=== PATIENT | female | born 1985 | race Caucasian/White ===

== ENCOUNTER 2021-04-17 15:59 | Emergency (ER) | payer MEDICAID, SELFPAY ==
[2021-04-17 16:00] VITALS: BP 142/99; PULSE 88; RESP 16; TEMP 36.4; O2SAT 100; BMI 28.1
--- NOTE | 2021-04-17 16:14 | EX.ED.DYSGE1 ---
HPI History of Present Illness Chief Complaint: Abscess Informant: patient Narrative Narrative: 35-year-old female states that yesterday she developed a small pustule on the right side of her nose. She attempted to squeeze it today seems larger there is a red spot in the center of it. She notes a pe[place] of a shiny substance around it. There is no significant overlying erythema. She has never had an abscess before. PFSH PFSH Medical History no medical history no medical history Home Medications cephalexin 500 mg PO Q6 #28 capsule 04/17/21 [Rx Last Taken Unknown] sulfamethoxazole-trimethoprim 1 tab PO BID #14 tablet 04/17/21 [Rx Last Taken Unknown] Allergy/AdvReac Type Severity Reaction Status Date / Time No Known Allergies Allergy Verified 04/17/21 16:01 Surgical History no surgical history no surgical history Social History (Updated 04/17/21 @ 16:[address] Steven Wood, DO) current gender identity: female substance use type: does not use ROS ROS ED Constitutional Constitutional ED: Denies chills, fever(s) or weight loss Eyes Eyes: Denies change in vision or diplopia ENT ENT ED: Denies ear pain, rhinorrhea or sore throat Cardiovascular Cardiovascular: Denies chest pain, orthopnea, palpitations or racing heartbeat Respiratory/Chest Respiratory/Chest: Denies cough, dyspnea or orthopnea Gastrointestinal Gastrointestinal: Denies abdominal pain, diarrhea, nausea or vomiting Genitourinary Genitourinary ED: Denies dysuria, hematuria or urinary frequency Musculoskeletal Musculoskeletal: Denies arthralgias or myalgias Integumentary Reports abscess; Denies rash Neurologic Neurologic: Denies headache(s) or weakness Psychiatric Psychiatric: Denies anxiety, depression, suicidal ideation or suicidal thoughts Endocrine Endocrinology: Denies polydipsia, polyphagia or polyuria Allergic/Immunologic Allergic/Immunologic ED: Denies mouth swelling, tongue swelling or urticaria EXAM Physical Exam Const Vital Signs: 04/17/21 16:00 Temperature 97.6 F L Temperature Source Temporal Pulse Rate 88 Respiratory Rate 16 Blood Pressure 142/99 H Blood Pressure Mean 113 Pulse Ox 100 Oxygen Delivery Method Room Air Positive well nourished and well developed General Appearance ED: well developed HEENT Reports normocephalic, head/scalp atraumatic, TM's clear and moist mucous membranes HEENT Narrative: See skin exam Tympanic Membrane ED: Yes TM's clear Eyes PERRL and EOMs intact bilaterally Neck no lymphadenopathy, supple and no JVD Resp normal respiratory effort and clear to auscultation bilaterally Cardio regular rate, regular rhythm and no murmurs GI normal to inspection, nondistended, normoactive bowel sounds and non-tender Palpation: soft Back/Spine no CVA tenderness and normal ROM Extremity normal to inspection General Extremety ED: Negative for edema General Extremity: Negative for edema Neuro oriented x3 and CN's II-XII intact bilaterally Sensorium / Orientation: alert Motor Exam: strength 5/5 throughout Psych mental status grossly normal Mood & Affect: Negative for depressed or tearful Skin no wounds Skin Narrative: On the right lateral side of the nose on the maxillary sinus region there is a dime sized area of induration. There is no fluctuance. There is a central area of hemorrhage just underneath the skin. There is no evidence of cellulitis. MDM MDM MDM Narrative Medical decision making narrative: This appears more of a early abscess/pustule. She will be started on Keflex and Bactrim. I advised warm heat. Return if worsening or concerns Discharge Plan Triage Chief Complaint: Abscess ED Provider: Steven Wood Dx/Rx/DC Orders Clinical Impression: Abscess of face Instructions: ED Abscess Antibiotic Treatment Only Prescriptions: New sulfamethoxazole-trimethoprim [sulfamethoxazole-trimethoprim] 1 TABLET tablet 1 tab PO BID Qty: 14 RF: 0 cephalexin [cephalexin] 500 MG capsule 500 mg PO Q6 Qty: 28 RF: 0 Primary Care Provider: [facility] ,Out of Referrals: [facility] Doctor,Out of [Primary Care Provider] - Activity Restrictions/Additional Instructions: Follow-up with primary care if not improving return if worsening or concerns Disposition Disposition: Home, Self Care
== END 2021-04-17 17:04 | disposition home or self-care (01) ==
LOC: ED 16:30
PROVIDERS: Emergency Provider Emergency Medicine
DX: L02.01 Cutaneous abscess of face (principal)
CPT/HCPCS: 99282